=== PATIENT | male | born 1970 | race Caucasian/White ===

== ENCOUNTER 2021-08-11 17:51 | Emergency (ER) | payer SELFPAY ==
[~2021-08-11] VITALS: Ht 172.7 cm; Wt 98.9 kg
[2021-08-11] MEDS ORDERED: ONDANSETRON PF 4 MG/2 ML VIAL. IVP ONE (18:30)
[2021-08-11] MEDS ORDERED: IV NORMAL SALINE 1,000ML 1,000 ML IV ONE (18:30)
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
[2021-08-11] MEDS ORDERED: IOHEXOL 300 MG/ML 75 ML VIAL. IV ONE (18:45)
[2021-08-11] MEDS ORDERED: CONTRAST GIVEN. MC PRN (18:45)
[2021-08-11 18:54] LABS: BASO # 0.1 x10^3/uL (0.0-0.2); BASO % 0 % (0-3); EOS # 0.5 x10^3/uL (0.0-0.7); EOS % 4 % (0-3); HEMATOCRIT 45.4 % (39.0-53.0); HEMOGLOBIN 14.8 g/dL (13.0-17.5); LYMPH # 1.8 x10^3/uL (1.0-4.8); LYMPH % 13 % (24-48); MEAN CORPUSCULAR HEMOGLOBIN 30 pg (25-35); MEAN CORPUSCULAR HGB CONC 33 g/dL (31-37); MEAN CORPUSCULAR VOLUME 92 fL (79-100); MONO # 0.8 x10^3/uL (0.0-1.1); MONO % 6 % (0-9); NEUT # 10.6 x10^3uL (1.8-7.7); NEUT % 77 % (31-73); PLATELET COUNT 414 x10^3/uL (140-400); RED BLOOD COUNT 4.92 x10^6/uL (4.30-5.70); RED CELL DISTRIBUTION WIDTH 13.2 % (11.5-14.5); WHITE BLOOD COUNT 13.8 x10^3/uL (4.0-11.0)
[2021-08-11 19:16] LABS: CALCIUM 8.2 mg/dL (8.5-10.1); GFR 78.2; POTASSIUM 3.5 mmol/L (3.5-5.1)
[2021-08-11 19:22] LABS: ALBUMIN 4.1 g/dL (3.4-5.0); TOTAL BILIRUBIN 0.3 mg/dL (0.2-1.0); TOTAL PROTEIN 8.3 g/dL (6.4-8.2)
--- NOTE | 2021-08-11 19:36 | RAD ---
CT scan of the chest, abdomen and pelvis with contrast 08/11/2021 CLINICAL HISTORY: Fall with severe chest, abdominal and pelvic pain. TECHNIQUE: After the intravenous administration of 75 cc of Omnipaque 300, contiguous, 0.625 mm axial sections were obtained through the chest, abdomen and pelvis. 3 mm reconstructed axial and 3 mm sagi ttal and coronal reconstructed images were obtained. One or more of the following individualized dose reduction techniques were utilized for this study: 1. Automated exposure control. 2. Adjustment of the mA and/or kV according to patient size. 3. Use of iterative reconstruction technique. FINDINGS: No mediastinal hematoma is seen. The heart and thoracic aorta are within normal limits. Minimal dependent subsegmental atelectasis is seen involving both lungs. No area of consolidation is seen. No pneumothorax or pleural effusion is noted. Decreased attenuation of the liver parenchyma seen consistent with fatty infiltration. The spleen, pa ncreas, and adrenal glands are within normal limits. Rounded low-attenuation lesions are seen involvi ng both kidneys. These measure 3 mm to 2 cm in size. They likely represent cysts. The abdominal aorta tapers normally. The gallbladder is contracted. The appendix is well-visualized a nd is within normal limits. No free fluid or free air is seen within the abdomen. Images through the pelvis demonstrate the urinary bladder distended with urine. Calcifications are se en within the pelvis consistent with phleboliths. No free fluid is seen. No pelvic hematoma is noted. Scattered diverticula are seen involving the sigmoid colon. No inflammatory changes are seen adjacen t fat. Acute essentially nondisplaced fractures are seen involving the posterior/ lateral aspect of the righ t fifth, sixth and seventh ribs. Bilateral spondylolysis is seen at L4. Mild anterolisthesis of L4 in relation L5 is seen. IMPRESSION: Right-sided rib fractures as discussed above. No pneumothorax is seen. Electronically signed by: Sahil Phan MD (08/11/2021 7:34 PM) [id number]
--- NOTE | 2021-08-11 19:50 | RAD ---
EXAM: CT head and cervical spine without contrast INDICATION: Fall greater than 15 feet. Head and neck pain COMPARISON: None TECHNIQUE: Axial CT imaging through the head and cervical spine without intravenous contrast. Sagitta l and coronal reformats were obtained. One or more of the following individualized dose reduction techniques were utilized for this examinat ion: 1. Automated exposure control 2. Adjustment of the mA and/or kV according to patient size 3. Use of iterative reconstruction technique. FINDINGS: CT head: Ventricles and sulci are normal. Coon-white matter differentiation is maintained. No intracranial hem orrhage, acute infarct, or mass lesion. Maxillary sinus disease. Mastoid air cells are clear. The sku ll is intact. Globes and orbits are intact. Small left parietal scalp contusion. CT cervical spine: No acute fracture. Alignment is normal. Disc spaces are maintained. Mild uncovertebral joint prolifer ation at C5-C6. No bony canal or foraminal narrowing. Prevertebral soft tissues normal. IMPRESSION: 1. No acute intracranial abnormality. 2. No acute osseous abnormality cervical spine. 3. Maxillary sinus disease. Electronically signed by: Ilana Riley MD (08/11/2021 7:47 PM) [id number]
[2021-08-11] MEDS ORDERED: KETOROLAC 30 MG/ML VIAL. IVP ONE (20:45)
[2021-08-11] MEDS ORDERED: oxyCODONE/APAP 5/325 1 TAB TABLET PO ONE (20:45)
[2021-08-11] MEDS ORDERED: IBUP600T16 PO (22:19)
[2021-08-11] MEDS ORDERED: OXYC1TAB15 PO (22:19)
[2021-08-11] MEDS ORDERED: OXYC5TAB4 PO (22:25)
[2021-08-11 22:33] VITALS: BP 144/80
== END 2021-08-11 22:33 | disposition home or self-care (01) ==
LOC: ER 17:51
DX: S22.41XA Multiple fractures of ribs, right side, initial encounter for closed fracture (principal); W14.XXXA Fall from tree, initial encounter; Y93.89 Activity, other specified; Y92.89 Other specified places as the place of occurrence of the external cause; Y99.8 Other external cause status
CPT/HCPCS: 36415; 70450; 71260; 72125; 74177; 80053; 85025; 96361; 96374; 96375; 99285; J1885; J2405; J3010; J7030; Q9967